=== PATIENT | male | born 1945 | race Caucasian/White ===

== ENCOUNTER → 2016-09-01 | Outpatient (CLI) | payer MEDICARE, OTHER ==
--- NOTE | 2016-09-01 13:32 | MRI ---
EXAM DESCRIPTION: Lumbar Spine w/o Contrast CLINICAL HISTORY: STENOSIS COMPARISON: None Available. TECHNIQUE: MRI of the lumbar spine is performed according to our usual protocol with axial and sagittal multi sequence imaging. FINDINGS: There is good alignment of the lumbar spine. Multilevel disc desiccation is present with preservation of vertebral height and no significant marrow edema identified. No intradural or intramedullary abnormalities are noted. There is no vertebral pathology. The retroperitoneal structures are unremarkable except for a large approximate five or 6 cm cyst arising from the lower pole of the left kidney that is only partially visualized. L1-2: Disc desiccation and broad-based annular bulge with thecal sac in the lower range of normal with mild symmetric narrowing of each L1 neural foramen. No lateralizing herniation is seen. L2-3: Disc desiccation and mild annular bulge and facet arthropathy with adequate canal and mild narrowing of each inferior L2 neural foramen. L3-4: Disc desiccation and mild symmetric annular bulge with moderate facet arthropathy with thecal sac in the lower range of normal with symmetric modest foraminal narrowing. Below the disc space very slight left-sided disc prominence is present consistent with a minimal left-sided protrusion. L4-5: Disc desiccation with broad-based annular bulge and adequate central canal with mild bilateral L4 foraminal narrowing. L5-S1: Asymmetric broad-based annular bulge with adequate canal and moderate facet arthropathy with modest narrowing of both L5 neural foramina. To the left of midline midway between the L4-5 and L5 disc is a small extruded disc fragment lying adjacent to the exiting left L5 nerve root. This could arise from either the disc space above or below. IMPRESSION: 1. Two level disc desiccation with annular bulges and thecal sac in the lower range of normal at L1-2, L2-3, L3-4. 2. Minimal left-sided disc prominence at L3-4 consistent with a mild protrusion superimposed upon annular bulge. 3. Small left-sided extruded disc fragment lying behind the left side of the L5 vertebral body between the disc above and below with questionable mild compression of the left L5 nerve root. 4. Multilevel bilateral foraminal narrowing from disc bulges and facet arthropathy. Electronically signed by: Juan Lo MD 09/01/2016 1:31 PM CDT
== END ==
LOC: MRI 07:01
PROVIDERS: ATTEND Family Medicine
DX: M48.06 Spinal stenosis, lumbar region (principal); M51.86 Other intervertebral disc disorders, lumbar region

== ENCOUNTER → 2016-09-16 | Outpatient (CLI) | payer MEDICARE, OTHER ==
--- NOTE | 2016-09-16 14:03 | CT ---
EXAM DESCRIPTION: Abdomen t/Pelvis w/o Contrast CLINICAL HISTORY: 71 years, 71 years, Male, Male, RENAL CYST COMPARISON: None. TECHNIQUE: CT of the abdomen and pelvis is performed according to our non contrast protocol This exam was performed according to our departmental dose-optimization program, which includes automated exposure control, adjustment of the mA and/or kV according to patient size and/or use of iterative reconstruction technique. FINDINGS: The lung bases are clear. The liver, biliary system, pancreas, and spleen are normal on noncontrast imaging. The liver appears upper normal in size and mild diffusely fatty infiltrated and the gallbladder is surgically absent. The right kidney is unremarkable on noncontrast imaging. The left kidney demonstrates a benign oval simple cyst of the lower pole now measuring 7.2 cm in size and slightly increased from previous 2015 examination. The appearance remains that of a benign cyst. The adrenal glands and retroperitoneum are normal without mass or adenopathy. The IVC is normal and the aorta has a normal size and contour. The stomach and small bowel are unremarkable. A surgical anastomosis in the sigmoid colon region with an element of diverticulosis of the sigmoid colon is noted. A series of three fat-containing midline ventral hernias are present. A small less than 2 cm hernia above the umbilicus and a slightly larger right paraumbilical fat-containing hernia is noted with a larger midline fat-containing hernia in the infraumbilical region between the rectus muscles with slight diastases noted. This inferior hernia is slightly enlarged in size since study two years earlier. The bladder has no focal mass or stone evident. The pelvis demonstrates no fluid collection or abnormal mass. Age appropriate degenerative changes in the spine and pelvis are noted. IMPRESSION: 1. Benign-appearing lower pole left renal cyst with slight interval increase in size since 2015 to a maximal diameter of 7.2 cm. 2. Multiple midline ventral fat-containing hernias with slight enlargement of the most inferior hernia since prior study 3. Borderline hepatomegaly with fatty replaced liver and prior cholecystectomy noted Electronically signed by: Juan Lo MD 09/16/2016 2:03 PM CDT
== END ==
LOC: CT 07:51
PROVIDERS: ATTEND Family Medicine
DX: N28.1 Cyst of kidney, acquired (principal); K43.9 Ventral hernia without obstruction or gangrene

== ENCOUNTER → 2017-04-07 | Outpatient (CLI) | payer MEDICARE, OTHER | END | disposition home or self-care (01) | LOC: GMAJ 10:25 | PROVIDERS: ATTEND Family Medicine | DX: E03.9 Hypothyroidism, unspecified (principal); Z12.5 Encounter for screening for malignant neoplasm of prostate | CPT/HCPCS: 84443; G0103 ==

== ENCOUNTER 2017-06-18 16:40 | Emergency (ER) | payer MEDICARE, OTHER ==
[2017-06-18] MEDS ORDERED: IPRATROPIUM/ALBUTEROL 3 ML VIAL NEB ONE ×2 (17:19)
[2017-06-18] MEDS ORDERED: ONDANSETRON INJ 4 MG/2 ML VIAL IV ONE (17:19)
--- NOTE | 2017-06-18 17:20 | ED.PDOC ---
History of Present Illness - General Chief Complaint: Respiratory Problem Stated Complaint: COUGH, NAUSEA AND DIARRHEA Time Seen by Provider: 06/18/17 17:14 Source: patient, family Exam Limitations: no limitations - History of Present Illness Timing/Duration: week, getting worse Cough Quality/Degree: moderate, dry cough Possible Cause: no prior episodes Improving Factors: nothing Worsening Factors: nothing Associated Symptoms: cough, fever/chills, nasal congestion, shortness of breath , sore throat Respiratory Risk Factors: exposure to illness Allergies/Adverse Reactions: Allergies Penicillins Allergy (Intermediate, Verified 08/24/12 08:43) Rabies Vaccine Allergy (Verified 06/18/17 17:47) Home Medications: Ambulatory Orders Albuterol Sulfate [Ventolin Hfa] 108 mcg IN DAILY PRN 08/21/12 Fenofibrate [Lofibra] 160 mg PO DAILY 08/21/12 Levothyroxine Sodium 175 mcg PO DAILY 02/21/14 Azithromycin Tab [Zithromax Tab] 250 mg PO QD 5 Days #6 tab 06/18/17 Minocycline HCl 50 mg PO DAILY 06/18/17 Tamsulosin [Flomax] 0.4 mg PO QD 06/18/17 predniSONE 20 mg PO BID #10 tab 06/18/17 Review of Systems - Review of Systems Constitutional: States: chills, fever, malaise, weakness EENTM: States: nose congestion, throat pain Respiratory: States: cough, short of breath. Denies: wheezing Cardiology: Denies: chest pain, edema, palpitations Gastrointestinal/Abdominal: States: nausea. Denies: abdominal pain, vomiting Genitourinary: States: no symptoms reported Musculoskeletal: States: joint pain, muscle pain Skin: Denies: rash Neurological: States: weakness. Denies: headache Endocrine: States: no symptoms reported. Denies: unexplained weight gain Hematologic/Lymphatic: States: no symptoms reported. Denies: swollen glands Past Medical History (General) - Patient Medical History Hx Seizures: No Hx Stroke: No Hx Dementia: No Hx Asthma: No Hx of COPD: Yes Hx Cardiac Disorders: No Hx Congestive Heart Failure: No Hx Pacemaker: No Hx Hypertension: No Hx Thyroid Disease: Yes Hx Diabetes: No Hx Gastroesophageal Reflux: No Hx Renal Disease: No Hx Cancer: No Hx of HIV: No Hx Hepatitis C: No Hx MRSA: No Surgical History: cholecystectomy, tonsillectomy, other - Vaccination History Hx Influenza Vaccination: Yes Hx Pneumococcal Vaccination: Yes - 2015 - Social History Hx Tobacco Use: Yes - quit 13 yrs ago Hx Alcohol Use: No Hx Substance Use: No Hx Substance Use Treatment: No Hx Depression: No Hx Physical Abuse: No Hx Emotional Abuse: No Family Medical History - Family History Father Family History: Unknown Physical Exam - Physical Exam General Appearance: Alert, Comfortable, Lethargic Eye Exam: bilateral normal ENT Exam: nasal drainage, pharyngeal erythema Neck: non-tender, full range of motion, supple Respiratory: chest non-tender, normal breath sounds, rhonchi Cardiovascular/Chest: normal peripheral pulses, regular rate, rhythm, no edema Gastrointestinal/Abdominal: normal bowel sounds, non tender, soft Extremity: normal range of motion, non-tender, normal inspection, no pedal edema Departure - Departure Clinical Impression: COPD (chronic obstructive pulmonary disease) with acute bronchitis Disposition: Discharge to Home or Self Care Condition: Fair Departure Forms: ED Discharge - Pt. Copy, Patient Portal Self Enrollment Referrals: Peter Davidson MD [Primary Care Provider] - 1-2 Weeks Prescriptions: Azithromycin Tab [Zithromax Tab] 250 mg PO QD 5 Days #6 tab predniSONE 20 mg PO BID #10 tab Home Medications: Ambulatory Orders Albuterol Sulfate [Ventolin Hfa] 108 mcg IN DAILY PRN 08/21/12 Fenofibrate [Lofibra] 160 mg PO DAILY 08/21/12 Levothyroxine Sodium 175 mcg PO DAILY 02/21/14 Azithromycin Tab [Zithromax Tab] 250 mg PO QD 5 Days #6 tab 06/18/17 Minocycline HCl 50 mg PO DAILY 06/18/17 Tamsulosin [Flomax] 0.4 mg PO QD 06/18/17 predniSONE 20 mg PO BID #10 tab 06/18/17
--- NOTE | 2017-06-18 17:37 | RAD ---
EXAM DESCRIPTION: Chest,1 View CLINICAL HISTORY: 72 years Male cough, sob COMPARISON: 05/11/2013. FINDINGS: The study is slightly suboptimal from patient body habitus. The cardiomediastinal silhouette appears unremarkable. Mild scarring/atelectasis at the left lung base and in the mid right lung. No definite consolidating infiltrates or pleural effusions. No pneumothorax. IMPRESSION: Mild scarring/atelectasis in the lungs. No definite consolidating infiltrates. Electronically signed by: Bryan Bass MD 06/18/2017 5:36 PM RN [facility]
[2017-06-18 17:55] VITALS: O2SAT 98
[2017-06-18 19:38] VITALS: BP 152/82; TEMP 99
== END 2017-06-18 19:39 | disposition home or self-care (01) ==
LOC: ER 16:40
DX: J44.9 Chronic obstructive pulmonary disease, unspecified (principal); J20.9 Acute bronchitis, unspecified; E07.9 Disorder of thyroid, unspecified; Z87.891 Personal history of nicotine dependence; Z88.0 Allergy status to penicillin; Z88.7 Allergy status to serum and vaccine
CPT/HCPCS: 36415; 71045; 80053; 85025; 87070; 87502; 87651; 94640; J2405; J7620

== ENCOUNTER → 2017-09-22 | Outpatient (CLI) | payer MEDICARE, OTHER | LOC: LAB.O 16:03 | PROVIDERS: ATTEND Surgery | DX: L72.3 Sebaceous cyst (principal) ==

== ENCOUNTER 2017-11-19 22:59 | Emergency (ER) | payer MEDICARE, OTHER ==
[2017-11-19 23:23] VITALS: TEMP 99.1
[2017-11-19] MEDS ORDERED: HYDROcodone 5MG/APAP 325MG 1 EA TAB PO ONE (23:35)
--- NOTE | 2017-11-19 23:38 | ED.PDOC ---
History of Present Illness - General Chief Complaint: General Stated Complaint: hemorrhiod Time Seen by Provider: 11/19/17 23:34 Source: patient Additional Information: HE SUFFERS OF RECTAL S[ASMS AND YESTERDAY HE WAS HAVING PAIN TO THE RECTAL AREA. TODAY HE NOTICED ABD ENLARGED AND PAINFUL HEMORRHOID. HE IS AFRAID ITS GOING TO RUPTURE. - History of Present Illness Timing/Duration: 24 hours Severity: moderate Improving Factors: nothing Worsening Factors: nothing Associated Symptoms: denies symptoms Allergies/Adverse Reactions: Allergies Penicillins Allergy (Intermediate, Verified 08/24/12 08:43) Rabies Vaccine Allergy (Verified 06/18/17 17:47) Home Medications: Ambulatory Orders Albuterol Sulfate [Ventolin Hfa] 108 mcg IN DAILY PRN 08/21/12 Fenofibrate [Lofibra] 160 mg PO DAILY 08/21/12 Levothyroxine Sodium 175 mcg PO DAILY 02/21/14 Azithromycin Tab [Zithromax Tab] 250 mg PO QD 5 Days #6 tab 06/18/17 Minocycline HCl 50 mg PO DAILY 06/18/17 Tamsulosin [Flomax] 0.4 mg PO QD 06/18/17 predniSONE 20 mg PO BID #10 tab 06/18/17 Hydrocort 2.5% Crm (Anusol Hc) [Anusol-HC Cream] 2.5 % [place] BID #30 tube 11/19/17 Tramadol HCl 50 mg PO Q6HRS #20 tab 11/19/17 Review of Systems - Review of Systems Constitutional: States: no symptoms reported EENTM: States: no symptoms reported Respiratory: States: no symptoms reported Cardiology: States: no symptoms reported Gastrointestinal/Abdominal: States: no symptoms reported, other - RECTAL PAIN Genitourinary: States: no symptoms reported Musculoskeletal: States: no symptoms reported Skin: States: no symptoms reported Neurological: States: no symptoms reported Endocrine: States: no symptoms reported Hematologic/Lymphatic: States: no symptoms reported Past Medical History (General) - Patient Medical History Hx Seizures: No Hx Stroke: No Hx Dementia: No Hx Asthma: No Hx of COPD: Yes Hx Cardiac Disorders: No Hx Congestive Heart Failure: No Hx Pacemaker: No Hx Hypertension: No Hx Thyroid Disease: Yes Hx Diabetes: No Hx Gastroesophageal Reflux: No Hx Renal Disease: No Hx Cancer: No Hx of HIV: No Hx Hepatitis C: No Hx MRSA: No Surgical History: appendectomy, cholecystectomy, tonsillectomy - Vaccination History Hx Influenza Vaccination: Yes Hx Pneumococcal Vaccination: Yes - Social History Hx Tobacco Use: Yes - quit 13 yrs ago Hx Alcohol Use: No Hx Substance Use: No Hx Substance Use Treatment: No Hx Depression: No Hx Physical Abuse: No Hx Emotional Abuse: No Family Medical History - Family History Father Family History: Unknown Physical Exam - Physical Exam General Appearance: Alert, Other - MODERATE DISTRESS Ears, Nose, Throat: hearing grossly normal, normal ENT inspection Neck: non-tender, full range of motion, supple Respiratory: chest non-tender, lungs clear, normal breath sounds, no respiratory distress, no accessory muscle use Cardiovascular/Chest: normal peripheral pulses, regular rate, rhythm, no edema, no gallop, no JVD Gastrointestinal/Abdominal: normal bowel sounds, non tender, soft, no organomegaly, no pulsatile mass Rectal Exam: hemorrhoids Back Exam: normal inspection Extremity: normal range of motion, non-tender Neurologic: no motor/sensory deficits Skin Exam: normal color Departure - Departure Clinical Impression: External hemorrhoids without complication Time of Disposition: 23:40 Disposition: Discharge to Home or Self Care Condition: Fair Departure Forms: ED Discharge - Pt. Copy, Patient Portal Self Enrollment Diet: bland diet Referrals: Peter Davidson MD [Primary Care Provider] - 1-2 Weeks Prescriptions: Tramadol HCl 50 mg PO Q6HRS #20 tab Hydrocort 2.5% Crm (Anusol Hc) [Anusol-HC Cream] 2.5 % WV BID #30 tube Home Medications: Ambulatory Orders Albuterol Sulfate [Ventolin Hfa] 108 mcg IN DAILY PRN 08/21/12 Fenofibrate [Lofibra] 160 mg PO DAILY 08/21/12 Levothyroxine Sodium 175 mcg PO DAILY 02/21/14 Azithromycin Tab [Zithromax Tab] 250 mg PO QD 5 Days #6 tab 06/18/17 Minocycline HCl 50 mg PO DAILY 06/18/17 Tamsulosin [Flomax] 0.4 mg PO QD 06/18/17 predniSONE 20 mg PO BID #10 tab 06/18/17 Hydrocort 2.5% Crm (Anusol Hc) [Anusol-HC Cream] 2.5 % WV BID #30 tube 11/19/17 Tramadol HCl 50 mg PO Q6HRS #20 tab 11/19/17
[2017-11-19] MEDS: LIDOCAINE 4% TOPICAL 50 ML BTTL TOP ONE ×2 (23:51→23:58)
[2017-11-19] MEDS ORDERED: LIDOCAINE 2 % GEL 5 ML TUBE TOP ONE (23:55)
[2017-11-20 00:06] VITALS: BP 160/109; O2SAT 95
== END 2017-11-20 00:05 | disposition home or self-care (01) ==
LOC: ER 22:59
DX: K64.4 Residual hemorrhoidal skin tags (principal); J44.9 Chronic obstructive pulmonary disease, unspecified; E07.9 Disorder of thyroid, unspecified; Z79.899 Other long term (current) drug therapy

== ENCOUNTER 2017-11-26 12:33 | Emergency (ER) | payer MEDICARE, OTHER ==
[2017-11-26] MEDS ORDERED: SODIUM CHLORIDE 0.9% (FLUSH) 10 ML SYG IV PRN (12:58)
[2017-11-26] MEDS ORDERED: ACETAMINOPHEN 500 MG TAB PO ONE (12:58)
--- NOTE | 2017-11-26 13:16 | RAD ---
EXAM DESCRIPTION: Chest,1 View CLINICAL HISTORY: 72 years Male, dyspnea fever COMPARISON: June 18, 2017. FINDINGS: Heart size appears within normal limits, considering portable technique. Equivocal minimal uncoiling of the thoracic aorta. Slightly prominent hilar shadows are consistent with pulmonary vasculature. There is slight linear stranding and prominence of interstitial markings in the mid and lower lung valles. This appears about the same on the left side as on the previous examination but possibly slightly increased on the right side. Subsegmental atelectasis or mild pneumonitis is not excluded. No major consolidation is identified. There is no evidence of obvious pneumothorax or alveolar pulmonary edema. No other significant changes are seen. IMPRESSION: Questionable for mild pneumonitis in the right lower lung field. Other essentially stable chronic changes. Follow-up suggested. Electronically signed by: Farhan Colin MD 11/26/2017 1:15 PM CDT
[2017-11-26] MEDS ORDERED: levoFLOXacin 750MG IV 750 MG in PREMIX BAG 1 BAG IVPB ONE (14:01)
[2017-11-26] MEDS ORDERED: SODIUM CHLORIDE 0.9% 1000ML 1,000 ML IVS ONE (14:01)
--- NOTE | 2017-11-26 14:12 | ED.PDOC ---
History of Present Illness - General Chief Complaint: Respiratory Problem Stated Complaint: Dizziness, SOB, chest tightness Time Seen by Provider: 11/26/17 12:57 Source: patient, RN notes reviewed, Vital Signs reviewed, family Exam Limitations: no limitations - History of Present Illness Initial Comments: Started feeling bad yesterday. Today he woke up with a headache & dyspnea. Later in the morning he was out in the heat pulling up shrubs when he said he pulled his back. Since then he developed fever. He denies CP to me. He has had a non-productive cough. Timing/Duration: 24 hours Severity: moderate Activities at Onset: none Possible Cause: occasional episodes - with pneumonia Improving Factors: nothing Worsening Factors: nothing Associated Symptoms: cough, fever, weakness Respiratory Risk Factors: no cause identified Allergies/Adverse Reactions: Allergies Penicillins Allergy (Intermediate, Verified 11/26/17 13:03) Rabies Vaccine Allergy (Verified 11/26/17 13:03) Home Medications: Ambulatory Orders Albuterol Sulfate [Ventolin Hfa] 108 mcg IN DAILY PRN 08/21/12 Fenofibrate [Lofibra] 160 mg PO DAILY 08/21/12 Levothyroxine Sodium 175 mcg PO DAILY 02/21/14 Minocycline HCl 50 mg PO DAILY 06/18/17 Tamsulosin [Flomax] 0.4 mg PO QD 06/18/17 Hydrocort 2.5% Crm (Anusol Hc) [Anusol-HC Cream] 2.5 % SD BID #30 tube 11/19/17 Fluticasone Furoate-Vilanterol [Breo Ellipta 100-25 Mcg/INH] 1 spray INH DAILY 11/26/17 Levofloxacin [Levaquin] 750 mg PO DAILY #5 tablet 11/26/17 Umeclidinium-Vilanterol [Anoro Ellipta 62.5-25 Mcg/INH] 1 aer INH DAILY Past Medical History (General) - Patient Medical History Hx Seizures: No Hx Stroke: Yes - No residual effect Hx Dementia: No Hx Asthma: No Hx of COPD: Yes - emphysema Hx Cardiac Disorders: No Hx Congestive Heart Failure: No Hx Pacemaker: No Hx Hypertension: Yes Hx Thyroid Disease: Yes Hx Diabetes: No Hx Gastroesophageal Reflux: Yes Hx Renal Disease: No Hx Cancer: No Hx of HIV: No Hx Hepatitis C: No Hx MRSA: No Surgical History: appendectomy, cholecystectomy, colectomy, tonsillectomy, other - Vaccination History Hx Influenza Vaccination: Yes - 2016 Hx Pneumococcal Vaccination: Yes - Social History Hx Tobacco Use: Yes - Quit 2002 Hx Alcohol Use: No Hx Substance Use: No Hx Substance Use Treatment: No Hx Depression: No Hx Physical Abuse: No Hx Emotional Abuse: No Family Medical History - Family History Father Family History: Unknown Progress - Progress Progress: 11/26/17 14:10 HR 107. 143/78. Appears well. 11/26/17 15:34 Feels much better. No dyspnea. - EKG/XRAY/CT EKG: Sinus, Tachy - HR 117; LAD, no ST T wave changes Departure - Departure Clinical Impression: Pneumonia Qualifiers: Pneumonia type: due to unspecified organism Laterality: right Lung location: middle lobe of lung Qualified Code(s): J18.1 - Lobar pneumonia, unspecified organism Time of Disposition: 15:35 Disposition: Discharge to Home or Self Care Condition: Good Departure Forms: ED Discharge - Pt. Copy, Patient Portal Self Enrollment Instructions: DI for Pneumonia -- Adult Referrals: Peter Davidson MD [Primary Care Provider] - 11/29/17 Prescriptions: Levofloxacin [Levaquin] 750 mg PO DAILY #5 tablet Home Medications: Ambulatory Orders Albuterol Sulfate [Ventolin Hfa] 108 mcg IN DAILY PRN 08/21/12 Fenofibrate [Lofibra] 160 mg PO DAILY 08/21/12 Levothyroxine Sodium 175 mcg PO DAILY 02/21/14 Minocycline HCl 50 mg PO DAILY 06/18/17 Tamsulosin [Flomax] 0.4 mg PO QD 06/18/17 Hydrocort 2.5% Crm (Anusol Hc) [Anusol-HC Cream] 2.5 % SD BID #30 tube 11/19/17 Fluticasone Furoate-Vilanterol [Breo Ellipta 100-25 Mcg/INH] 1 spray INH DAILY 11/26/17 Levofloxacin [Levaquin] 750 mg PO DAILY #5 tablet 11/26/17 Umeclidinium-Vilanterol [Anoro Ellipta 62.5-25 Mcg/INH] 1 aer INH DAILY
[2017-11-26 17:40] VITALS: BP 146/86; TEMP 98.9; O2SAT 97
== END 2017-11-26 16:05 | disposition home or self-care (01) ==
LOC: ER 12:33
DX: J18.1 Lobar pneumonia, unspecified organism (principal); J44.9 Chronic obstructive pulmonary disease, unspecified; I10 Essential (primary) hypertension; E07.9 Disorder of thyroid, unspecified; K21.9 Gastro-esophageal reflux disease without esophagitis; Z86.73 Personal history of transient ischemic attack (TIA), and cerebral infarction without residual deficits; Z87.891 Personal history of nicotine dependence
CPT/HCPCS: 36415; 71045; 80053; 82550; 82553; 83605; 84484; 85025; 85379; 85610; 85730; 87040; 93005; 94760; J1956; J7030

== ENCOUNTER → 2018-04-04 | Outpatient (CLI) | payer MEDICARE, OTHER ==
--- NOTE | 2018-04-05 10:20 | CT ---
EXAM DESCRIPTION: Chest w/o Contrast : Computed Tomography. CLINICAL HISTORY: EMPHYSEMA. Pulmonary nodules. COMPARISON: CT scan of the chest without contrast 01/06/2018. TECHNIQUE: Spiral-axial scans at 5 x 5 mm intervals through the lungs and thorax without IV contrast. 2.5 x 5 mm lung algorithm axial reconstructions. Coronal and sagittal 2.0 Mm reconstructions. Total Exam DLP: 877.66 mGy-cm. This exam was performed according to our departmental dose-optimization program which includes automated exposure control, adjustment of the mA and/or kV according to patient size and/or use of iterative reconstruction technique; to reduce radiation dose to as low as reasonably achievable (ALARA). Nodule measurements under 10 mm are given as mean value of 3 axes diameters. FINDINGS: Lungs and large airways: Multiple parenchymal blebs and bulla and pleural based blebs and bulla are again noted bilaterally more severe improvement in the upper lung valles compared to lung bases. Solid bilobed nodule with circumscribed margins in the inferior lingula subpleural, just anterior to the inferior left major fissure, measuring 8 mm on lung window axial image 85, stable since the prior study. Stable groundglass densities in the left upper and lower lobes. Stable groundglass densities peripherally in the right lower lobe and at the base. Also in the base and periphery of the right middle lobe. Subpleural semisolid nodule closely associated with the anterior pleura in the right upper lobe on lung axial image 29 is 5 mm. A similar appearing semisolid nodule is slightly more superior and closely associated with the lateral pleura measuring 7 mm on image 21 more inferiorly a semisolid groundglass nodule associated with the lateral pleura of the right upper lobe, on image 32, is 4 mm diameter. These are stable since the prior study. No new infiltrates masses or abnormal nodules. Pleural spaces: Emphysematous blebs and bulla bilaterally. Focal thickening associated with nodules as described above. No effusion or pneumothorax bilaterally. Mediastinum and Brenda: Evaluation limited due to lack of IV contrast. 8 millimeters short axis azygous lymph node. No dominant soft tissue masses. Great vessels and Heart: Evaluation limited due to lack of IV contrast.. Minimal atherosclerotic calcification of the proximal brachiocephalic vessels aortic arch and descending thoracic aorta. Faint coronary artery calcification. Soft tissues of neck base, axillae, and chest wall: Evaluation limited due to lack of IV contrast.. Increased retroareolar density diffusely in the left breast. Stable since the prior study. Small thyroid gland. Upper abdomen: Partial visualization of the liver suggests steatosis. Surgical clips in the gallbladder fossa. Otherwise unremarkable Osseous structures: Cervical thoracic levoscoliosis. Early spondylosis at some levels. No lytic or blastic lesions. IMPRESSION: 1. Advanced emphysematous changes in the lungs bilaterally with multiple parenchymal and pleural based blebs and bulla more severe in the upper lung valles compared to the bases. No significant change. Bilateral peripheral and basilar groundglass densities are stable. Stable solid circumscribed nodule in the inferior lingula. Stable semisolid nodules in the right upper lobe which may represent focal pleural thickening. No acute infiltrate, new abnormal nodule or mass, no pleural effusion or pneumothorax. Consider CT chest follow-up at 6 month interval (August 2018), followed by 18-24 month follow-up scan, to document stability. Please see below for [facility] Best Practice recommendations, based upon 2017 Fleischner Society guidelines for multiple nodules.* 2. Stable steatosis in the liver which is partially visualized. *2017 Fleischner Society Recommendations for Multiple Solid Lung Nodules Follow-Up base on size (average of long- and short-axis diameters). Use most suspicious nodule for followup. Nodule Size 6-8 mm Low-Risk Patient: CT at 3-[address] at 18-24 months Nodule Size 6-8 mm High-Risk Patient: CT at 3-6 months then at 18-24 months Electronically signed by: Miky Cardoso MD 04/05/2018 10:18 AM [facility]
== END ==
LOC: CT 13:30
PROVIDERS: ATTEND Internal Medicine
DX: J43.9 Emphysema, unspecified (principal)

== ENCOUNTER → 2018-04-27 | Outpatient (CLI) | payer MEDICARE, OTHER | LOC: GMAJ 11:32 | PROVIDERS: ATTEND Family Medicine | DX: E03.9 Hypothyroidism, unspecified (principal); Z12.5 Encounter for screening for malignant neoplasm of prostate | CPT/HCPCS: 84443; G0103 ==

== ENCOUNTER → 2018-09-15 | Outpatient (CLI) | payer MEDICARE, OTHER ==
--- NOTE | 2018-09-15 15:55 | MRI ---
Study: MRI of the Lumbar Spine. Indication: MYALGIA INTERVERTEBRAL DISC DISORDERS WITH RADICULOPATHY Technique: Multiplanar, multi sequence MRI of the lumbar spine was obtained with and without intravenous contrast. Comparison: September 01, 2016. Findings: The designated L5-S1 disc space level is visualized on axial T2 image 3. Vertebral body height maintained. No marrow infiltrating lesion. Conus medullaris unremarkable. L1-L2: Moderate disc space height loss and disc desiccation. 3.5 mm disc bulge with superimposed progressed 3 mm left paracentral disc extrusion extending slightly above the disc space level. Mild left lateral recess narrowing. Indentation ventral thecal sac with mild spinal canal narrowing, mid sagittal thecal sac diameter 9 mm. Moderate bilateral facet arthrosis. Mild to moderate bilateral neural foraminal narrowing. These changes are progressed compared to the prior. L2-L3: Mild to moderate disc space height loss and disc desiccation. 3.5 mm disc bulge indenting the thecal sac without spinal canal narrowing. Mild to moderate bilateral neural foraminal narrowing appears stable. Moderate bilateral facet arthrosis and tiny joint effusions. L3-L4: Mild disc space height loss and disc desiccation. 4.5 mm left eccentric disc osteophyte complex with severe left neural foraminal narrowing and compromise of the exiting left L3 nerve root. Moderate right neural foraminal narrowing. Mild bilateral lateral recess narrowing. Indentation ventral thecal sac without spinal canal narrowing. Moderate bilateral facet arthrosis. L4-L5: Mild disc space height loss and disc desiccation. Trace retrolisthesis. 4 mm disc bulge with moderate right and mild left neural foraminal narrowing. Moderate bilateral facet arthrosis and tiny joint effusions. No spinal canal narrowing. L5-S1: Moderate bilateral facet arthrosis. Trace anterolisthesis. Moderate to severe posterior disc space height loss and disc desiccation. 5 mm disc uncovering and bulging with a superimposed multilobular left lateral recess/foraminal disc extrusion measuring up to 7 mm AP by 13 mm craniocaudal by 14 mm transverse and extending superiorly to the mid L4 level. It produces severe lateral recess narrowing and compromise of the descending/exiting left L5 nerve root. Severe left neural foraminal narrowing noted and is progressed compared to the prior. Severe right neural foraminal narrowing noted as well. No spinal canal narrowing. Moderate bilateral facet arthrosis. Progressed patchy Modic type I endplate changes at this level with associated enhancement. No fluid identified in the disc. There is however mild enhancement about the disc circumferentially with mild enhancing granulation tissue within the bilateral neural foramen. Impression: Multilevel lumbar disc disease with changes most pronounced at L5-S1 where there is severe left lateral recess narrowing and severe bilateral neural foraminal narrowing with recurrent left lateral recess/foraminal disc extrusion. Progressed Modic type I endplate changes at L5-S1 with enhancement about the disc space as well as enhancing granulation tissue within the neural foramen. Correlation with ESR and CRP recommended as discitis-osteomyelitis should be excluded. Additional findings as above. Electronically signed by: Marco A Christopher MD 09/15/2018 3:53 PM CDT
== END ==
LOC: MRI 09:00
PROVIDERS: ATTEND Physician Assistant
DX: M51.16 Intervertebral disc disorders with radiculopathy, lumbar region (principal); M79.18 Myalgia, other site

== ENCOUNTER → 2018-09-20 | Outpatient (CLI) | payer MEDICARE, OTHER | LOC: LAB.O 09:44 | PROVIDERS: ATTEND Physical Medicine & Rehabilitation | DX: M46.40 Discitis, unspecified, site unspecified (principal) ==

== ENCOUNTER → 2018-10-03 | Outpatient (CLI) | payer MEDICARE, OTHER ==
--- NOTE | 2018-10-04 09:00 | CT ---
EXAM DESCRIPTION: Chest w/o Contrast : Computed Tomography. CLINICAL HISTORY: 73 years Male PULMONARY NODULE COMPARISON: CT scan of the chest without contrast 04/04/2018. TECHNIQUE: Spiral-axial scans at 5.0 mm intervals through the lungs and thorax without IV contrast. 2.5 x 5 mm lung algorithm axial reconstructions. Coronal and sagittal 2.0 Mm reconstructions. Total Exam DLP: 715.28 mGy-cm. This exam was performed according to our departmental dose-optimization program which includes automated exposure control, adjustment of the mA and/or kV according to patient size and/or use of iterative reconstruction technique; to reduce radiation dose to as low as reasonably achievable (ALARA). Nodule measurements under 10 mm are given as mean value of 3 axes diameters. FINDINGS: Lungs and large airways: Again noted are multiple blebs and bulla in the upper lung valles more than the lower lung valles with most of the bulla abutting the pleura peripherally and in the midline. Stable 8 mm bilobed nodule partially radiolucent on the lateral and inferior aspect, on axial series -74 in the inferior lingula abutting pleural parenchymal scarring. Posterior right lower lobe nodular density abutting the pleura on image 4/24 stable. Stable nodular densities associated with pleural thickening in the lateral right apex on axial images /-15 and Bilateral scattered peripheral honeycombing and groundglass densities are stable. Bibasilar posterior dependent atelectasis more on the right, stable. Pleural spaces: Stable nodular pleural thickening in the right apex, extending longitudinally in the inferior direction, images 4/13-15. More thickening than in the left apex. No complications. Focal pleural thickening anterior right upper lobe associated with arthrosis of the first rib costosternal joint, with Hounsfield density +400 is stable (images 4/20-21.. Mediastinum and Brenda: Evaluation limited due to lack of IV contrast. No enlarged lymph nodes or dominant soft tissue masses. Great vessels and Heart: Evaluation limited due to lack of IV contrast.. Minimal calcification coronary arteries. Atherosclerotic calcification in the included brachiocephalic vessels aortic arch and descending thoracic aorta. Soft tissues of neck base, axillae, and chest wall: Evaluation limited due to lack of IV contrast.. Asymmetric density retroareolar left breast. Small thyroid gland. Chest wall and neck base otherwise negative. Upper abdomen: Large diffuse low-density liver. Normal size and density of the carotid spleen and adrenal glands. No peritoneal stranding free fluid or free air. Osseous structures: Minimal spondylosis in the thoracic spine. Mild arthrosis manubriosternal joint and bilateral sternoclavicular joints. No lytic or blastic lesions. IMPRESSION: 1. Solid 8 mm nodule in the inferior lingula is stable. Focal pleural thickening more likely then semisolid nodules stable right apex. Posterior nodular density abutting the pleura in the right upper lobe also stable. Bilateral peripheral groundglass densities and honeycombing. Advanced emphysematous changes with blebs more prevalent in the upper lobes and bulla associated with medial and peripheral pleura bilateral lungs more in the upper lung valles. Also stable since the prior study. [facility] Best Practice recommendations: Follow up CT at 18-24 month interval. This is based upon Fleischner Society 2017 recommendations for follow-up of single pulmonary nodule. Please see below*. 2. Fatty liver stable. 3. Stable pleural thickening. *2017 Fleischner Society Recommendations for Single Solid Lung Nodule Follow-Up based on size (average of long- and short-axis diameters) 6-8 mm Low-Risk Patient: CT at 6-[address] at 18-24 months 6-8 mm High-Risk Patient: CT at 6-[address] at 18-24 months. Electronically signed by: Miky Cardoso MD 10/04/2018 8:59 AM CDT
== END ==
LOC: CT 13:30
PROVIDERS: ATTEND Internal Medicine
DX: R91.1 Solitary pulmonary nodule (principal); J43.9 Emphysema, unspecified; J94.9 Pleural condition, unspecified; K76.0 Fatty (change of) liver, not elsewhere classified

== ENCOUNTER → 2018-11-07 | Outpatient (CLI) | payer MEDICARE, OTHER | LOC: GMAJ 12:19 | PROVIDERS: ATTEND Family Medicine | DX: N40.1 Benign prostatic hyperplasia with lower urinary tract symptoms (principal); E03.9 Hypothyroidism, unspecified; E78.2 Mixed hyperlipidemia ==

== ENCOUNTER → 2018-11-13 | Outpatient (CLI) | payer MEDICARE, OTHER ==
--- NOTE | 2018-11-14 11:12 | MRI ---
EXAM DESCRIPTION: Lumbar Spine w/o Contrast : Magnetic Resonance Imaging. CLINICAL HISTORY: DISCITIS COMPARISON: MRI scan of the lumbar spine without IV gadolinium contrast or 09/15/2018. TECHNIQUE: Multiplanar, multiple standard sequences, non contrast MRI, lumbar spine. FINDINGS: L5-S1: Disc desiccation with calcification or gas in the disc posteriorly. This is protruding midline with superior extrusion 1.4 cm above the disc space impressing on the ventral thecal sac. Extrusion has progressed since the prior study. Abutting the exiting left L5 nerve. AP canal diameter 10 mm. Hypertrophic facet arthrosis on the left with thickening of the left flavum ligament. Moderate endplate reactive changes with disc spur complex encroachment on the bilateral foramina and bilateral foraminal stenosis and compromise of the exiting L5 nerves. Stable since the prior study. More left than right. #4: Disc desiccation and disc space preserved. L4-L5: Disc desiccation with disc space maintained. Tiny posterior broad-based bulge. Mild hypertrophic facet arthrosis and thickened ligaments on the right. Mild canal narrowing. Moderate narrowing right foramen and mild narrowing left foramen. L3-L4: Disc desiccation with disc space preserved. Anterior mild endplate reactive changes. Also to the left of midline with disc spur complex encroaching on the left foramen with compromise of the exiting left L3 nerve. No change from the prior study. Moderate narrowing of the right foramen. Posterior bilateral hypertrophic facet arthrosis with thickening of the flavum ligaments resulting in moderate canal narrowing. Stable. L2-L3: Disc desiccation and disc space preserved. Anterior moderate endplate reaction superior L3 endplate. Posterior mild disc bulge. Bilateral hypertrophic facet arthrosis and ligament thickening more left than right. Mild canal narrowing. Mild to moderate bilateral foraminal narrowing. No change from the prior study. L1-L2: Disc desiccation and disc and moderate disc space loss and spondylosis more left than right. Anterior disc bulge and endplate ridging. Retrolisthesis 3 mm with disc bulge. Small annular fissure to the left of midline. AP canal diameter 10 mm. Bilateral mild hypertrophic facet arthrosis and thickening of the ligaments. Mild narrowing left foramen and patent right foramen. Stable since the prior study. T12-L1: Normal signal in the disc with disc space preserved. Posterior elements unremarkable. Canal and foramina patent. Conus terminates at this level. Normal signal in the distal cord and conus. No change since the prior study. L1 to L4 dextroscoliosis Paravertebral soft tissues negative.. Normal marrow signal in the remaining vertebral bodies and the posterior elements. Vertebral bodies are not compressed at any level. IMPRESSION: 1. Progressive superior extrusion of the L5-S1 disc herniation impressing on the ventral thecal sac and abutting the descending left L5 nerve. Progressive canal narrowing. Bilateral foraminal stenosis and compromise of the bilateral exiting L5 nerves. Stable since the prior study. 2. Disc desiccation and disc space loss with circumferential endplate ridging at L1-2, borderline mild central canal stenosis, and retrolisthesis. No significant foraminal narrowing. Stable since prior study. 3. Spondylosis on the left at L3-4 with encroachment on the foramen and compromise of the exiting left L3 nerve. Stable since the prior study. Electronically signed by: Miky Cardoso MD 11/14/2018 11:10 AM CDT
== END ==
LOC: RAD 13:09
PROVIDERS: ATTEND Family Medicine
DX: M51.27 Other intervertebral disc displacement, lumbosacral region (principal); M51.36 Other intervertebral disc degeneration, lumbar region; M47.896 Other spondylosis, lumbar region; M48.062 Spinal stenosis, lumbar region with neurogenic claudication

== ENCOUNTER → 2019-07-04 | Outpatient (CLI) | payer MEDICARE, OTHER ==
--- NOTE | 2019-07-05 06:29 | CT ---
EXAM DESCRIPTION: Chest w/o Contrast CLINICAL HISTORY: 74 years Male, SOLITARY NODULE OF LUNG TECHNIQUE: This exam was performed according to our departmental dose-optimization program, which includes automated exposure control, adjustment of the mA and/or kV according to patient size and/or use of iterative reconstruction technique. COMPARISON: January 06, 2018, 10/03/2018, September 16, 2016 FINDINGS: The thyroid gland is unremarkable. No axillary adenopathy. Atherosclerotic plaque in the normal caliber thoracic aorta. No pericardial effusion. Steatosis. No evidence of acute process in the visualized upper abdomen. No new or enlarging mediastinal adenopathy. No pneumothorax. No pleural effusion. Similar advanced bullous emphysema and peripheral fibrosis. Similar biapical scarring. No focal consolidation. The left lower lobe 8 mm solid noncalcified pulmonary nodule is stable back to September 16, 2016, indicative of a benign etiology. No follow-up indicated. No new or suspicious pulmonary nodule identified. No acute or suspicious osseous abnormality. Scattered degenerative changes present. IMPRESSION: 1. Long-term stability of the previously identified lingular nodule, which is indicative of a benign etiology. No follow-up indicated. 2. Similar bullous emphysema with peripheral fibrosis and scarring. Electronically signed by: Maximino Carlisle MD 07/05/2019 6:28 AM LOAN TELLER
== END ==
LOC: CT 11:00
PROVIDERS: ATTEND Internal Medicine
DX: R91.1 Solitary pulmonary nodule (principal); J43.9 Emphysema, unspecified; J30.9 Allergic rhinitis, unspecified; R06.09 Other forms of dyspnea

== ENCOUNTER → 2019-08-03 | Outpatient (CLI) | payer MEDICARE, OTHER | DX: J84.112 Idiopathic pulmonary fibrosis (principal); R91.1 Solitary pulmonary nodule; K76.0 Fatty (change of) liver, not elsewhere classified; K44.9 Diaphragmatic hernia without obstruction or gangrene; J32.0 Chronic maxillary sinusitis ==

== ENCOUNTER → 2019-09-13 | Outpatient (CLI) | payer MEDICARE, OTHER ==
--- NOTE | 2019-09-13 15:22 | CT ---
EXAM DESCRIPTION: Chest w/o Contrast CLINICAL HISTORY: 74 years, Male, SOLITARY NODULE OF THE LUNG COMPARISON: Previous CT chest August 03, 2019 and July 04, 2019, January 06, 2018 CT chest TECHNIQUE: Thin-section noncontrast axial CT images are obtained according to our protocol. Reconstructed MPR images are created and reviewed as well. FINDINGS: Lungs: Subpleural honeycomb fibrosis is seen bilaterally. Larger cystic changes in the upper lobes appear emphysematous. Pleural parenchymal scarring in the apices right more than left consistent with old granulomatous infection. No acute-appearing consolidation. Nodule in the lingula measures 1 cm in greatest dimension unchanged from previous. Patient had earlier chest CT January 06, 2018. This nodule was present at that time with the same measurement. In December 2019, two-year stability will be demonstrated if CT is obtained at that time. Fibrotic and emphysematous changes in the lungs were present in December 2017. Mediastinum: Lymph nodes are normal in size. Normal vascular contours. Heart size is normal with no pericardial effusion. Chest wall/axilla: No mass or adenopathy. Lower neck/supraclavicular: No mass or adenopathy. Upper abdomen: Left renal lesion has a density of 2.5 Hounsfield units consistent with a cyst measuring 6.9 cm. Low density liver consistent with hepatic steatosis. Otherwise unremarkable upper abdominal viscera. IMPRESSION: No change in the appearance of the lungs compared to earlier studies. Stable lingular nodule. This exam was performed according to our departmental dose-optimization program, which includes automated exposure control, adjustment of the mA and/or kV according to patient size and/or use of iterative reconstruction technique. Total DLP equals 919.15 mGycm. Electronically signed by: Pineda Cuellar MD 09/13/2019 3:21 PM CDT
== END ==
LOC: CT 13:20
PROVIDERS: ATTEND Internal Medicine
DX: R91.1 Solitary pulmonary nodule (principal); R06.09 Other forms of dyspnea

== ENCOUNTER 2019-11-13 08:57 | Observation (INO) | payer MEDICARE, OTHER ==
[2019-11-13] MEDS ORDERED: MORPHINE SULFATE INJ 10 MG/ML VIAL IV ONE (09:02)
[2019-11-13] MEDS ORDERED: KETOROLAC TROMETHAMINE INJ 30 MG/ML VIAL IM ONE (09:33)
[2019-11-13] MEDS ORDERED: IPRATROPIUM/ALBUTEROL 3 ML VIAL NEB ONE (09:33)
[2019-11-13] MEDS ORDERED: SODIUM CHLORIDE 0.9% 1000ML 1,000 ML IVS ONE (09:44)
[2019-11-13] MEDS ORDERED: ACETYLCYSTEIN 20 % 6,000 MG/30 ML VIAL PO ONE (09:44)
--- NOTE | 2019-11-13 11:04 | RAD ---
EXAM DESCRIPTION: Chest,1 View CLINICAL HISTORY: 74 years Male, acute onset chest pain COMPARISON: 11/26/2017. TECHNIQUE: AP radiograph of the chest was obtained. FINDINGS: Trachea is midline.The cardiomediastinal silhouette is normal in size. The pulmonary vasculature is within normal limits. Emphysema and chronic interstitial changes of the bilateral lower lobes.No evidence of pleural effusions. IMPRESSION: No acute cardiopulmonary process. Electronically signed by: Claudia Carpio MD 11/13/2019 10:51 AM CDT
--- NOTE | 2019-11-13 11:04 | CT ---
EXAM DESCRIPTION: CTA Chest CLINICAL HISTORY: 74 years Male, elev ddimer, cp, abrupt onset COMPARISON: CT chest without contrast dated 09/13/2019. TECHNIQUE: Contiguous thin section axial images through the chest were obtained after the administration of intravenous contrast. MIPS, Sagittal and coronal reconstructions were reviewed. FINDINGS: The visualized thyroid gland and supraclavicular region appear normal. Few lymph nodes measuring up to 1 cm are noted in the mediastinum. 1.3 cm right hilar lymph node. Trachea is midline and the central tracheobronchial tree is patent. Severe emphysema. Scarring is noted in the bilateral lung atelectasis. Chronic interstitial changes are identified in the bilateral lung bases. Stable 1 cm nodule in the lingula on image #182. No evidence of pleural effusions. The heart is normal in size with no pericardial effusion. The visualized aorta is nonaneurysmal with mild atherosclerosis. The superior vena cava is normal in size and caliber.No significant coronary artery atherosclerosis. Focal hypodensity is noted in the left main pulmonary artery extending into the right upper lobe pulmonary arterial branch. This is most likely secondary to mixing of blood. Other differential consideration includes nonocclusive partial thrombus. Remainder of the visualized pulmonary arteries appear normal with no evidence of acute or chronic embolus. Severe reflux esophagitis. The liver demonstrates diffuse fatty infiltration. Remainder of the upper abdomen appears normal. Mild to moderate degenerative changes identified throughout the visualized spine. IMPRESSION: Focal hypodensity is noted in the left main pulmonary artery extending into the right upper lobe pulmonary arterial branch. This is most likely secondary to mixing of blood. Other differential consideration includes nonocclusive partial thrombus. Remainder of the visualized pulmonary arteries appear normal with no evidence of acute or chronic embolus. This exam was performed according to our departmental dose-optimization program, which includes automated exposure control, adjustment of the mA and/or kV according to patient size and/or use of iterative reconstruction technique. Electronically signed by: Claudia Carpio MD 11/13/2019 10:55 AM CDT
[2019-11-13] MEDS ORDERED: ALUM & MAG HYDROX-SIMETHICONE 30 ML, LIDOCAINE VISCOUS 2% 15 ML PO ONE ×2 (11:18)
[2019-11-13] MEDS ORDERED: AZITHROMYCIN IV 500 MG in SODIUM CHLORIDE 0.9% 250ML 250 ML IVPB ONE (12:44)
[2019-11-13] MEDS ORDERED: cefTRIAXone SODIUM 1 GM in SODIUM CHL 0.9% 50ML MIN-BAG+ 50 ML IVPB ONE (12:44)
[2019-11-13] MEDS ORDERED: predniSONE 20 MG TAB PO ONE (12:44)
[2019-11-13] MEDS ORDERED: ENOXAPARIN SODIUM 80 MG/0.8 ML SYG SUBCU ONE (12:51)
[2019-11-13] MEDS ORDERED: ENOXAPARIN SODIUM 30 MG/0.3 ML SYG SUBCU ONE (12:51)
--- NOTE | 2019-11-13 12:53 | ED.PDOC ---
History of Present Illness - General Chief Complaint: Chest Pain/VT Stated Complaint: SOB, chest pain Time Seen by Provider: 11/13/19 09:02 Source: patient, family Exam Limitations: no limitations - History of Present Illness Initial Comments: The patient is a 74-year-old male presented emergency room secondary to left parasternal chest pain that started about an hour prior to arrival. It progressed over a period of about 15 minutes from mild to very severe. He rates it a 9 out of 10. It is worse with taking a deep breath, twisting or turning or coughing. He does have a history of very severe COPD and does sleep with oxygen at night. He has had multiple pneumonias in the past. No fevers and no significant sputum production. No shortness of breath with activity at baseline. No new edema. He does have chronic reflux issues. The patient's pain did not respond to a dose of nitroglycerin nor did it respond to a GI cocktail. Pain did improve with morphine and Toradol. Timing/Duration: 1 hour Severity: severe Improving Factors: immobilization Worsening Factors: movement Associated Symptoms: chest pain Allergies/Adverse Reactions: Allergies Penicillins Allergy (Intermediate, Verified 11/13/19 09:10) Rabies Vaccine Allergy (Verified 11/13/19 09:10) Home Medications: Ambulatory Orders Albuterol Sulfate [Ventolin Hfa] 108 mcg IN DAILY PRN 08/21/12 Fenofibrate [Lofibra] 160 mg PO DAILY 08/21/12 Levothyroxine Sodium 175 mcg PO DAILY 02/21/14 Minocycline HCl [Minocycline Hydrochloride] 50 mg PO DAILY 06/18/17 Tamsulosin [Flomax] 0.4 mg PO QD 06/18/17 Fluticasone Furoate-Vilanterol [Breo Ellipta 100-25 Mcg/INH] 1 spray INH DAILY 11/26/17 Amlodipine Besylate 5 mg PO 11/13/19 Aspirin [Baby Aspirin] 81 mg PO DAILY 11/13/19 Dsivjtiafeq-Rwgdtctdjgek-Lljdl [Trelegy Ellipta 100-62.5-25 Mcg/INH] 1 aer IN 11/13/19 Methocarbamol 750 mg PO 11/13/19 Naproxen [EC-Naproxen] 500 mg PO 11/13/19 Prednisone 10 mg PO DAILY 11/13/19 Review of Systems - Review of Systems Constitutional: States: no symptoms reported EENTM: States: no symptoms reported Respiratory: States: no symptoms reported Cardiology: States: chest pain Gastrointestinal/Abdominal: States: no symptoms reported Genitourinary: States: no symptoms reported Musculoskeletal: States: no symptoms reported Skin: States: no symptoms reported Neurological: States: no symptoms reported Endocrine: States: no symptoms reported All other Systems: No Change from Baseline Past Medical History (General) - Patient Medical History Hx Seizures: No Hx Stroke: Yes - No residual effect Hx Dementia: No Hx Asthma: No Hx of COPD: Yes - emphysema Hx Cardiac Disorders: No Hx Congestive Heart Failure: No Hx Pacemaker: No Hx Hypertension: Yes Hx Thyroid Disease: Yes Hx Diabetes: No Hx Gastroesophageal Reflux: Yes Hx Renal Disease: No Hx Cancer: No Hx of HIV: No Hx Hepatitis C: No Hx MRSA: No - Vaccination History Hx Influenza Vaccination: No Hx Pneumococcal Vaccination: Yes - Social History Hx Tobacco Use: Yes - Quit 2002 Hx Alcohol Use: No Hx Substance Use: No Hx Substance Use Treatment: No Hx Depression: No Hx Physical Abuse: No Hx Emotional Abuse: No - Female History Patient is a Female of Child Bearing Age (10 -59 yrs old): No Family Medical History - Family History Father Family History: Unknown Physical Exam - Physical Exam General Appearance: Alert, No apparent distress, Obvious distress Eye Exam: bilateral normal Ears, Nose, Throat: hearing grossly normal, normal pharynx Neck: full range of motion, supple Respiratory: lungs clear, normal breath sounds, no respiratory distress, no accessory muscle use Cardiovascular/Chest: normal peripheral pulses, regular rate, rhythm, no edema Peripheral Pulses: radial,right: 2+, radial,left: 2+, dorsalis pedis,right: 2+, dorsalis pedis,left: 2+ Gastrointestinal/Abdominal: non tender, soft Rectal Exam: deferred Back Exam: no CVA tenderness, no vertebral tenderness Extremity: normal range of motion, non-tender, normal inspection, no pedal edema, normal capillary refill Neurologic: hospital account liaison II-XII nml as tested, alert, normal mood/affect - He is appropriately anxious, oriented x 3 Skin Exam: normal color Comments: Vital Signs - 24 hr 11/13/19 11/13/19 11/13/19 09:24 10:00 11:00 Temperature 97.8 F Pulse Rate [ 92 H 72 84 Left Radial] Respiratory 20 20 16 Rate Blood Pressure 119/75 121/75 110/85 [Left Arm] O2 Sat by Pulse 95 98 97 Oximetry 11/13/19 11:01 Temperature Pulse Rate [ 79 Left Radial] Respiratory 16 Rate Blood Pressure [Left Arm] O2 Sat by Pulse Oximetry Progress - Progress Progress: 11/13/19 12:55 The patient is a 74-year-old male presented emergency room secondary to acute onset left-sided parasternal chest pain that by description is most consistent with pleuritic chest pain. 2 sets of cardiac enzymes are negative so far. Given the patient's history, following the heart enzymes for 24 hours it is reasonable. Additionally the patient does have a history of significant esophagitis as seen on the CT scan. He will likely need GI medications in the long-term and an endoscopy in a month or 2. Do not believe the symptoms are coming from the esophagus. Believe the patient has a developing lingular pneumonia causing the pleuritic pain. The patient is being started on Rocephin and azithromycin. He has been given a dose of prednisone as well as he he is steroid dependent. He is also been given a dose of Lovenox currently. Admit for continued care and monitoring. He did receive a full dose aspirin prior to arrival. Patient is in agreement with this plan. Monitor on telemetry overnight. tonya broderick [phone] - Results/Orders Results/Orders: EKG shows normal sinus rhythm at 94 bpm. Mild left axis deviation. Poor R wave progression in anterior leads and Q waves in inferior leads. There are Q waves at least are definitely old. No definitive ST segment or T wave changes indicative of acute ischemia. Normal QT interval. Mild left atrial dilation. Single view chest x-ray appears essentially clear. CT angiogram of the chest showed severe emphysema with bullous changes. 1 cm stable nodule in the lingula. I do believe there is some surrounding infiltrate with this. Severe reflux esophagitis. Left main pulmonary artery hypodensities likely due to mixing of blood but partial clot cannot be ruled out. Laboratory Tests 11/13/19 11/13/19 11/13/19 09:00 09:00 09:00 WBC 5.8 RBC 5.09 Hgb 15.7 Hct 46.6 MCV 91.6 MCH 30.8 MCHC 33.6 RDW 13.7 Plt Count 203 MPV 9.1 Absolute Neuts (auto) 3.60 Absolute Lymphs (auto) 1.40 Absolute Monos (auto) 0.50 Absolute Eos (auto) 0.30 Absolute Basos (auto) 0.10 Neutrophils % 61.8 Lymphocytes % 23.3 Monocytes % 9.1 H Eosinophils % 4.6 Basophils % 1.2 PT 10.7 INR 1.08 PTT (SP) 24.5 D-Dimer, Quantitative 439 H Sodium 137 Potassium 3.8 Chloride 109 Carbon Dioxide 20 L Anion Gap 11.8 L BUN 25 H Creatinine 1.36 H BUN/Creatinine Ratio 18.4 Random Glucose 117 H Serum Osmolality 279.2 Calcium 9.3 Magnesium 1.8 Total Bilirubin 0.5 AST 25 ALT 19 Alkaline Phosphatase 69 Creatine Kinase 128 CK-MB (CK-2) 3.6 CK-MB (CK-2) % Not Reportable Troponin I < 0.02 B-Natriuretic Peptide 10.3 Serum Total Protein 7.2 Albumin 3.9 Globulin 3.3 Albumin/Globulin Ratio 1.2 11/13/19 12:13 WBC RBC Hgb Hct MCV MCH MCHC RDW Plt Count MPV Absolute Neuts (auto) Absolute Lymphs (auto) Absolute Monos (auto) Absolute Eos (auto) Absolute Basos (auto) Neutrophils % Lymphocytes % Monocytes % Eosinophils % Basophils % PT INR PTT (SP) D-Dimer, Quantitative Sodium Potassium Chloride Carbon Dioxide Anion Gap BUN Creatinine BUN/Creatinine Ratio Random Glucose Serum Osmolality Calcium Magnesium Total Bilirubin AST ALT Alkaline Phosphatase Creatine Kinase 107 CK-MB (CK-2) 3.1 CK-MB (CK-2) % Not Reportable Troponin I < 0.02 B-Natriuretic Peptide Serum Total Protein Albumin Globulin Albumin/Globulin Ratio - EKG/XRAY/CT CT Ordered: No Departure - Departure Clinical Impression: Lingular pneumonia Disposition: Admit Patient Departure Forms: ED Discharge - Pt. Copy, Patient Portal Self Enrollment Referrals: Peter Davidson MD [Primary Care Provider] - 1-2 Weeks Home Medications: Ambulatory Orders Albuterol Sulfate [Ventolin Hfa] 108 mcg IN DAILY PRN 08/21/12 Fenofibrate [Lofibra] 160 mg PO DAILY 08/21/12 Levothyroxine Sodium 175 mcg PO DAILY 02/21/14 Minocycline HCl [Minocycline Hydrochloride] 50 mg PO DAILY 06/18/17 Tamsulosin [Flomax] 0.4 mg PO QD 01/27/18 Fluticasone Furoate-Vilanterol [Breo Ellipta 100-25 Mcg/INH] 1 spray INH DAILY 11/26/17 Amlodipine Besylate 5 mg PO 11/13/19 Aspirin [Baby Aspirin] 81 mg PO DAILY 11/13/19 Pbzpufsukio-Nanmglktkezj-Txltu [Trelegy Ellipta 100-62.5-25 Mcg/INH] 1 aer IN 11/13/19 Methocarbamol 750 mg PO 11/13/19 Naproxen [EC-Naproxen] 500 mg PO 11/13/19 Prednisone 10 mg PO DAILY 11/13/19 Decision To Admit - Decistion To Admit Decision to Admit Reason: Medical Nature Decision to Admit Date: 11/13/19 Decision to Admit Time: 12:57
--- NOTE | 2019-11-13 13:14 | HP ---
SUPERVISING PHYSICIAN: Juan Amezquita MD CHIEF COMPLAINT: Chest pain. HISTORY OF PRESENT ILLNESS: This is a 74-year-old male patient with end-stage chronic obstructive pulmonary disease. He is oxygen dependent. He also has a significant history of chronic obstructive pulmonary disease. He was at a Bible study today and was having left sided chest pain. It did not radiate. He was not diaphoretic. It was constant, but it was pressure-like. It went on for about 15 minutes and EMS was called. He was brought to the Emergency Room and his initial vital signs showed temperature 97.8, heart rate 92, blood pressure 119/75, respiratory rate 20 to 22, O2 saturation 95% on 2 liters nasal cannula. His lab was done and CBC was unremarkable. His chemistry showed normal electrolytes, but his creatinine was slightly elevated at 1.36. That is about his baseline creatinine. His liver enzymes were unremarkable. The first two sets of cardiac enzymes were negative, but his D-dimer was 439. Chest and thorax CTA showed focal hypodensity noted in the left main pulmonary artery extending to the right upper lobe pulmonary artery branch, most likely secondary to mixing of blood. Other differential considerations include nonocclusive partial thrombus. His chest x-ray showed no acute cardiopulmonary processes, but there are some chronic interstitial changes of the bilateral lower lobes. He is on prednisone chronically and he was given a dose of prednisone. In addition to his routine medications, he was started on azithromycin and Rocephin. He was also given 1 mg/kg of Lovenox as well as morphine for pain. He had multiple breathing treatments. I was called for hospital admission. PAST MEDICAL HISTORY: 1. Hypothyroidism. 2. Hyperlipidemia. 3. Gastroesophageal reflux disease. 4. Chronic obstructive pulmonary disease. 5. Fatty liver disease. 6. Benign prostatic hypertrophy. PAST SURGICAL HISTORY: 1. Appendectomy. 2. Left knee arthroscopy. 3. Cholecystectomy. 4. Left total knee arthroplasty. 5. Tonsillectomy and adenoidectomy. 6. Right hand ORIF. 7. Spinal surgery. 8. Nasal surgery. 9. Neck surgery. 10. Left colectomy for recurrent diverticulitis. OUTPATIENT MEDICATIONS: Per the EMR and awaiting verification. FAMILY HISTORY: Positive for brain tumor and hypertension. SOCIAL HISTORY: He is retired. He is . He has four children. He quit smoking in 1999 and he denies any ETOH or illicit drug use. REVIEW OF SYSTEMS: GENERAL: Negative for fever, fatigue or weight changes. HEENT: Negative for sinus symptoms, ear pain, vision changes or sore throat. RESPIRATORY: As per history of present illness. CARDIAC: As per history of present illness. GASTROINTESTINAL: Negative for nausea, vomiting, diarrhea, constipation. GENITOURINARY: Negative for hematuria, dysuria or polyuria. MUSCULOSKELETAL: Negative for arthralgias, myalgias. SKIN: Negative for lesions or rashes. NEUROLOGIC: Negative for headache, weakness or seizures. PHYSICAL EXAMINATION: VITAL SIGNS: Temperature 98.2, heart rate 78, blood pressure 135/92, respiratory rate 20, O2 saturation 96% on 2 liters nasal cannula. GENERAL: This is a 74-year-old male patient who is lying in his hospital bed. He is in mild respiratory distress. HEENT: Normocephalic, atraumatic. Pupils are equal and reactive. Oropharynx is clear. NECK: Supple without mass. RESPIRATORY: Diminished breath sounds throughout. He is slightly tachypneic and can only speak in two to three word phrases. CARDIOVASCULAR: Regular rate and rhythm. GASTROINTESTINAL: Abdomen is soft, nondistended, nontender. Bowel sounds are positive. EXTREMITIES: No cyanosis, clubbing or edema. NEUROLOGIC: Awake, alert and oriented times three. Cranial nerves II-XII are grossly intact as tested. LABORATORY: Labs and films are as per history of present illness. IMPRESSION: 1. Chest pain, rule out acute coronary syndrome. His initial cardiac enzymes and EKGs have been negative. 2. Questionable pulmonary embolism. He did have an elevated D-dimer. 3. Concerns for developing interstitial pneumonia. 4. Chronic obstructive pulmonary disease with acute exacerbation. He is oxygen dependent at home. 5. High risk for COVID-19 due to age, respiratory symptoms and comorbidities. 6. Gastroesophageal reflux disease. 7. Hyperlipidemia. 8. Hypertension. 9. Hypothyroidism. 10. Benign prostatic hypertrophy. PLAN: The patient has been placed in observation. He will continue on his azithromycin and Rocephin. I will repeat his labs and films for in the morning. He did receive 1 mg/kg of Lovenox in the ER. I spoke with his primary care physician, Dr. Davidson, and he recommended that we hold off on any Lovenox until in the morning and the CTA could be reviewed with Dr. Cardoso, radiologist. He does have significant history of end-stage chronic obstructive pulmonary disease and he did sign a DNR and that has been updated in the chart. He also was tested for COVID-19 and we will await those results as he is at high risk both with his age and his comorbidities as well as respiratory diagnosis. He will followup with his primary care physician, Dr. Davidson. We will continue to monitor the patient closely and follow as needed. #[id number] MTDD
[2019-11-13] MEDS ORDERED: ONDANSETRON INJ 4 MG/2 ML VIAL IV PRN (14:21)
[2019-11-13] MEDS ORDERED: SODIUM CHLORIDE 0.9% (FLUSH) 10 ML SYG IV PRN (14:21)
[2019-11-13] MEDS ORDERED: ACETAMINOPHEN 325 MG TAB PO PRN (14:21)
[2019-11-13] MEDS ORDERED: IV SET AND CAP CHANGE INJ INJ SCH (14:30)
[2019-11-13] MEDS: IPRATROPIUM/ALBUTEROL 3 ML VIAL INH SCH ×2 (16:00→20:00)
[2019-11-13] MEDS: TAMSULOSIN 0.4 MG CAP PO SCH (16:23)
[2019-11-13] MEDS: MORPHINE SULFATE INJ 10 MG/ML VIAL IV PRN ×2 (17:30→23:05)
[2019-11-13] MEDS ORDERED: methylPREDNISolone SODIUM SUC 40 MG/ML VIAL ONE (19:32)
[2019-11-13] MEDS: SODIUM CHLORIDE 0.9% (FLUSH) 10 ML SYG IV SCH (20:31)
[2019-11-13] MEDS ORDERED: methylPREDNISolone SODIUM SUC 40 MG/ML VIAL IV ONE (21:00)
[2019-11-13] MEDS ORDERED: ENOXAPARIN SODIUM 80 MG/0.8 ML SYG SUBCU SCH (22:00)
[2019-11-13] MEDS ORDERED: ENOXAPARIN SODIUM 30 MG/0.3 ML SYG SUBCU SCH (22:00)
[2019-11-14] MEDS ORDERED: ENOXAPARIN SODIUM 30 MG/0.3 ML SYG SUBCU SCH
[2019-11-14] MEDS ORDERED: MELATONIN 3 MG TAB PO ONE (02:13)
[2019-11-14] MEDS ORDERED: LEVOTHYROXINE SODIUM 0.075 MG TAB ONE (04:47)
[2019-11-14] MEDS ORDERED: PANTOPRAZOLE SODIUM TAB 40 MG PO ONE (04:47)
[2019-11-14] MEDS ORDERED: LEVOTHYROXINE SODIUM 0.1 MG TAB ONE (04:47)
[2019-11-14] MEDS ORDERED: LEVOTHYROXINE SODIUM 0.1 MG TAB PO SCH (06:30)
[2019-11-14] MEDS ORDERED: LEVOTHYROXINE SODIUM 0.075 MG TAB PO SCH (06:30)
[2019-11-14] MEDS ORDERED: PANTOPRAZOLE SODIUM TAB 40 MG PO SCH (06:30)
--- NOTE | 2019-11-14 07:25 | RAD ---
CHEST, ONE VIEW XR CLINICAL HISTORY: Pneumonia COMPARISON: CTA chest 11/13/2019 TECHNIQUE: AP Chest. FINDINGS: Heart is normal in size. Normal cardiomediastinal contours. Coarse reticular interstitial densities predominantly subpleural distribution compatible with chronic changes with known bullae and minimal fibrosis. No pneumothorax. No pleural fluid. Unremarkable soft tissues and bones. IMPRESSION: 1. Stable bilateral subpleural reticular opacities secondary to bullous disease and chronic lung changes. No new acute finding. Electronically signed by: Maddy Kasper DO 11/14/2019 7:24 AM CDT
[2019-11-14] MEDS: IPRATROPIUM/ALBUTEROL 3 ML VIAL INH SCH ×2 (08:00→12:50)
[2019-11-14] MEDS ORDERED: NON-FORMULARY MEDICATION 1 EA MIS (Fluticasone Furoate-Vilanterol [Breo Ellipta 100-25 Mcg INH SCH (09:00)
[2019-11-14] MEDS ORDERED: FENOFIBRIC ACID 135 MG CAP PO SCH (09:00)
[2019-11-14] MEDS ORDERED: MINOCYCLINE HCL 50 MG PO SCH (09:00)
[2019-11-14] MEDS ORDERED: cefTRIAXone SODIUM 1 GM in SODIUM CHL 0.9% 50ML MIN-BAG+ 50 ML IVPB SCH (09:00)
[2019-11-14] MEDS ORDERED: predniSONE 10 MG TAB PO SCH (09:00)
[2019-11-14] MEDS: TAMSULOSIN 0.4 MG CAP PO SCH (09:01)
[2019-11-14] MEDS ORDERED: AZITHROMYCIN IV 500 MG in SODIUM CHLORIDE 0.9% 250ML 250 ML IVPB SCH (10:00)
[2019-11-14 11:46] VITALS: BP 128/81; TEMP 98.7
[2019-11-14] MEDS: SODIUM CHLORIDE 0.9% (FLUSH) 10 ML SYG IV SCH (12:15)
[2019-11-14 17:23] VITALS: O2SAT 96
--- NOTE | 2019-11-15 08:14 | DS ---
SUPERVISING PHYSICIAN: Juan Amezquita MD ADMISSION DIAGNOSIS: 1. Chest pain, rule out acute coronary syndrome. His initial cardiac enzymes and EKGs have been negative. 2. Questionable pulmonary embolism. He did have an elevated D-dimer. 3. Concerns for developing interstitial pneumonia. 4. Chronic obstructive pulmonary disease with acute exacerbation. He is oxygen dependent at home. 5. High risk for COVID-19 due to age, respiratory symptoms and comorbidities. 6. Gastroesophageal reflux disease. 7. Hyperlipidemia. 8. Hypertension. 9. Hypothyroidism. 10. Benign prostatic hypertrophy. DISCHARGE DIAGNOSIS: 1. Chest pain with no evidence of acute coronary syndrome with cardiac workup being negative with no acute changes on EKGs and cardiac enzymes remained negative after three sets with chest pain resolved without intervention. 2. Elevated D-dimer with no current clinical evidence of pulmonary embolus. 3. Chronic obstructive pulmonary disease with mild exacerbation. He is oxygen dependent at home. 4. COVID-19 testing pending. 5. Gastroesophageal reflux disease. 6. Hyperlipidemia. 7. Hypertension. 8. Hypothyroidism. 9. Benign prostatic hypertrophy. REASON FOR HOSPITALIZATION : This is a 74-year-old male patient with end-stage chronic obstructive pulmonary disease. He is oxygen dependent. He also has a significant history of chronic obstructive pulmonary disease. He was at a Bible study today and was having left sided chest pain. It did not radiate. He was not diaphoretic. It was constant, but it was pressure-like. It went on for about 15 minutes and EMS was called. He was brought to the Emergency Room and his initial vital signs showed temperature 97.8, heart rate 92, blood pressure 119/75, respiratory rate 20 to 22, O2 saturation 95% on 2 liters nasal cannula. His lab was done and CBC was unremarkable. His chemistry showed normal electrolytes, but his creatinine was slightly elevated at 1.36. That is about his baseline creatinine. His liver enzymes were unremarkable. The first two sets of cardiac enzymes were negative, but his D-dimer was 439. Chest and thorax CTA showed focal hypodensity noted in the left main pulmonary artery extending to the right upper lobe pulmonary artery branch, most likely secondary to mixing of blood. Other differential considerations include nonocclusive partial thrombus. His chest x-ray showed no acute cardiopulmonary processes, but there are some chronic interstitial changes of the bilateral lower lobes. He is on prednisone chronically and he was given a dose of prednisone. In addition to his routine medications, he was started on azithromycin and Rocephin. He was also given 1 mg/kg of Lovenox as well as morphine for pain. He had multiple breathing treatments. The patient was admitted in stable condition. LABORATORY: White count on discharge was 11,500 with a left shift. Hemoglobin 14.6, hematocrit 43.7. Coagulation studies showed normal PT, PTT, just a slightly elevated D-dimer at 439. Chemistries on discharge showed normal electrolytes with creatinine 1.2. He had four sets of troponins, all less than 0.02. Triglycerides were elevated at 164, cholesterol 157, LDL 106, HDL 29. EKGs showed normal sinus rhythm without ST or T wave changes and no acute changes during hospitalization. MICROBIOLOGY: Sputum culture culture is pending. Blood cultures are pending. RADIOLOGY: Chest x-ray in the Emergency Room per radiologic interpretation showed no acute cardiopulmonary process. He also had a CTA of the chest and per radiologic interpretation showed focal hypodensity noted in the left main pulmonary artery extending to the right pulmonary lobe, pulmonary artery branch, most likely secondary to mixing of blood, otherwise differential consideration might include some partial thrombus. Remaining visualized pulmonary arteries appeared to be normal with no evidence of acute or chronic embolus. Review of the CTA was requested per Dr. Cardoso and after further discussion, noted the area in question seemed to be artifact and it looked symmetrical bilaterally. Therefore, no true evidence of any acute pulmonary embolus or arterial emboli. HOSPITAL COURSE: Mr. Carmichael was admitted for chronic obstructive pulmonary disease exacerbation with chest pain. At the time of admission, the patient was pain free. He had no recurrence of his symptoms. He had no EKG changes on telemetry or 12-lead EKGs. His cardiac workup showed no acute findings with troponins being less than 0.02. It was felt that there was some evidence of possible developing interstitial pneumonia, but the patient has chronic chronic obstructive pulmonary disease changes. He was started on azithromycin and Rocephin with some prednisone. He was given a single dose of Lovenox in the ER prior to admission. Clinically, he was found to be without any significant findings to indicate ischemia or acute coronary syndrome and, again, had no recurrence of symptomatology. Therefore, it was felt that he could be discharged to followup as an outpatient. The patient does wear oxygen at home. DISCHARGE ASSESSMENT: VITAL SIGNS: Temperature 98.7, pulse 89, blood pressure 128/81, respirations 20, saturation 99% on 2 liters nasal cannula. GENERAL: The patient is resting comfortably. CHEST: Lung sounds were just diminished towards the bases, otherwise clear. HEART: Regular rate and rhythm. ABDOMEN: Soft, nontender, positive bowel sounds. EXTREMITIES: No edema. NEUROLOGIC: Alert and oriented x3. PLAN: Mr. Simon was discharged to followup with Dr. Davidson on 11/26/19 at 10:30 am. He was to resume all his home medications as prior to hospitalization. He was to resume his usual diet as tolerated. He was to increase activity as tolerated and wear oxygen as instructed. He was given a prescription for antibiotic coverage as well as steroids with final prescriptions being a Z-Killian 250 mg as instructed, no refills, and a Medrol Dosepak 4 mg to take as directed, no refills. All other medications prior to hospitalization were continued including his aspirin. CONDITION ON DISCHARGE: Stable and improved. DISPOSITION: The patient was discharged home to followup with Dr. Davidson. #[id number] [facility]
== END 2019-11-14 13:50 | disposition home or self-care (01) ==
LOC: ER 08:57 → MS 13:13
PROVIDERS: ADMIT Nurse Practitioner Acute Care; ATTEND Nurse Practitioner Family
DX: J44.1 Chronic obstructive pulmonary disease with (acute) exacerbation (principal); R07.89 Other chest pain; K21.0 Gastro-esophageal reflux disease with esophagitis; E78.5 Hyperlipidemia, unspecified; I10 Essential (primary) hypertension; E03.9 Hypothyroidism, unspecified; N40.0 Benign prostatic hyperplasia without lower urinary tract symptoms; Z11.59 Encounter for screening for other viral diseases; Z99.81 Dependence on supplemental oxygen; Z66 Do not resuscitate; Z79.52 Long term (current) use of systemic steroids; Z79.82 Long term (current) use of aspirin; Z79.899 Other long term (current) drug therapy; Z88.0 Allergy status to penicillin; Z88.7 Allergy status to serum and vaccine; Z87.891 Personal history of nicotine dependence; Z96.652 Presence of left artificial knee joint; Z86.73 Personal history of transient ischemic attack (TIA), and cerebral infarction without residual deficits
CPT/HCPCS: 96366; 96367; 96365; 96375; 96376 ×2; 96372; J0696 ×2; J1650 ×2; J1885; J1030; J2270 ×3; J7512 ×2; J7030; J7050 ×4; J0456 ×2; A4216 ×2; J7620 ×5; 85379; 80048; 82553 ×4; 80053; 80061; 36415 ×6; 85025 ×2; 82550 ×4; 87070; 87040 ×2; 87205; 83735 ×2; 85730; 85610; 84484 ×4; 83880; 71045 ×2; 71275; 94640 ×4; 94760 ×2; 94762; 99285; 93005 ×3; U0002

== ENCOUNTER → 2019-12-07 | Outpatient (CLI) | payer MEDICARE, OTHER | LOC: GMAJ 10:38 | PROVIDERS: ATTEND Family Medicine | DX: N40.1 Benign prostatic hyperplasia with lower urinary tract symptoms (principal); E03.9 Hypothyroidism, unspecified; E78.2 Mixed hyperlipidemia; I10 Essential (primary) hypertension ==

== ENCOUNTER → 2019-12-12 | Outpatient (CLI) | payer MEDICARE, OTHER ==
--- NOTE | 2019-12-13 07:44 | MRI ---
PROVIDED CLINICAL HISTORY/REASON FOR EXAM: RADICULOPATHY TECHNIQUE: Multiplanar, multisequence MRI examination performed of the lumbar spine with and without intravenous contrast material. COMPARISON: November 13, 2018 FINDINGS: Five lumbar type vertebra are assumed. Finishing Frame Runner L5/S1 disc space is at axial T2 image three. Alignment: Degenerative stairstep retrolisthesis. No acute subluxation. Geographic Bone Lesions: None present. Fracture: None present. Paraspinal Soft Tissues: Postsurgical changes in the posterior paraspinal musculature. Retroperitoneum: Visible structures are unremarkable. Conus Medullaris: Termination at L1 level. Morphology is normal. L1/2: Disc desiccation with loss of disc space height and endplate degenerative change. Diffuse symmetric disc bulge osteophyte complex with a superimposed central disc protrusion, unchanged from the previous examination. Bilateral facet hypertrophy with thickening of the ligamentum flavum. Mild central canal stenosis. Moderate left and mild right neural foraminal narrowing. L2/3: Disc desiccation with loss of disc space height and endplate degenerative change. Diffuse, minimally asymmetric left disc bulge osteophyte complex. Moderate bilateral lateral recess stenosis. No significant central canal stenosis. Bilateral facet hypertrophy. Trace right facet effusion. Moderate left and mild right neural foraminal narrowing. Posterior annular fissure is present. L3/4: Disc desiccation with loss of posterior disc space height. Small symmetric disc bulge with a superimposed left foraminal zone disc protrusion. Moderate left and mild right lateral recess stenosis. Mild central canal stenosis. Bilateral facet hypertrophy with thickening of the ligamentum flavum. Moderate left and right neural foraminal narrowing. L4/5: Disc desiccation with loss of posterior disc space height. Diffuse symmetric disc bulge with a superimposed central disc protrusion. No significant central canal stenosis. Mild bilateral lateral recess stenosis. Bilateral facet hypertrophy with thickening of the ligamentum flavum. Trace left facet effusion. Mild left and moderate right neural foraminal narrowing. L5/S1: Right hemilaminectomy. Enhancing fibrosis in the posterior paraspinal musculature. No encroachment upon the thecal sac. Disc desiccation with loss of disc space height and endplate degenerative change. Diffuse symmetric disc bulge osteophyte complex with a posterior annular fissure. Severe bilateral neural foraminal narrowing. No significant central canal stenosis. Bilateral facet hypertrophy. Previously identified this protrusion has improved. IMPRESSION: Multilevel lumbar spondylosis most pronounced at L5/S1 with severe bilateral neural foraminal narrowing. Electronically signed by: Maximino Carlisle MD 12/13/2019 7:42 AM CDT
== END ==
LOC: MRI 13:00
PROVIDERS: ATTEND Neurological Surgery
DX: M47.26 Other spondylosis with radiculopathy, lumbar region (principal); M47.897 Other spondylosis, lumbosacral region; M48.07 Spinal stenosis, lumbosacral region